=== PATIENT | female | born 1995 | race Caucasian/White ===

== ENCOUNTER 2020-05-23 17:27 | Emergency (ER) | payer OTHER ==
[~2020-05-23] VITALS: Ht 157.5 cm; Wt 52.2 kg
[2020-05-23] MEDS ORDERED: IBUPROFEN 800800 M1 PO (18:58)
[2020-05-23 19:31] VITALS: BP 121/72
== END 2020-05-23 19:36 | disposition home or self-care (01) ==
LOC: ER 17:27
DX: S93.601A Unspecified sprain of right foot, initial encounter (principal); F17.210 Nicotine dependence, cigarettes, uncomplicated; X50.1XXA Overexertion from prolonged static or awkward postures, initial encounter; Y93.89 Activity, other specified; Y92.89 Other specified places as the place of occurrence of the external cause; Y99.8 Other external cause status